=== PATIENT | female | born 1930 | race Caucasian/White ===

== ENCOUNTER 2017-09-08 13:22 | Emergency (ER) | payer MEDICARE, OTHER ==
[~2017-09-08] VITALS: Ht 165.1 cm; Wt 90.0 kg
[~2017-09-08 13:22] MED LIST: ACETAMIN500 M1 PO; ACETAMINOPHEN500 MG PO; ACID REDUCER150 MG PO; ADVIL200 MG PO; ALEVE220 M1 PO; AMOXICILLIN875 MG OR; ANTI-FUNGAL12 TOP; ASPIRIN EC81 MG PO; BENADRYL 50MG C50 MG PO; BL IBUPROFEN200 MG PO; CATAPRES0.1 MG OR; CEPHALEXIN500 MG PO; CLARITIN10 M1 PO; CORICIDN HBP OR; DEBROX6.5 % OT; DEPO-MEDROL80 MG/ML IM; DONEPEZIL5 MG PO; FISH OIL1000 MG PO; FLEXERIL5 M1 PO; HYDROCHLOROTH12.5 MG PO; HYDROXYZ HCL25 MG PO; KEFLEX500 M1 PO; KLOR-CON M2020 MEQ PO; LASIX 40 MG TAB40 MG PO; LASIX20 MG PO; LISINOPRIL10 M1 PO; LISINOPRIL20 MG PO; LOPRESSOR25 MG OR; LOVASTATIN10 M1 PO; MEDDOSEPAK PO; MOBIC7.5 MG PO; NAPROSYN500 MG PO; NITROFURANTN100 M2 PO; PAXIL20 MG OR; PREDNISONE20 MG PO; PRILOSEC20 MG OR; PRINZIDE OR; TEMAZEPAM15 MG PO; TOPROL XL OR; TRAMADOL HCL50 MG PO; TYLENOL325 MG OR; ULTRAM50 M1 PO; VITAMIN B-121000 MCG OR; XANAX0.25 MG OR
[2017-09-08] MEDS ORDERED: ACETAMIN325 MG PO (13:58)
[2017-09-08] MEDS ORDERED: KURIC2 % EX (14:00)
[2017-09-08] MEDS ORDERED: LOSARTAN POT25 MG PO (14:01)
[2017-09-08] MEDS ORDERED: MILK OF MAG30 ML/UDC PO (14:03)
[2017-09-08 18:22] VITALS: BP 169/78
== END 2017-09-08 18:22 | disposition short-term general hospital (02) ==
LOC: ED 13:22
PROC: 0HQFXZZ Repair Right Hand Skin, External Approach (ICD-10-PCS; principal; 2017-09-08)
PROC: 0HQDXZZ Repair Right Lower Arm Skin, External Approach (ICD-10-PCS; 2017-09-08)
DX: S01.81XA Laceration without foreign body of other part of head, initial encounter (principal); S61.411A Laceration without foreign body of right hand, initial encounter; S51.012A Laceration without foreign body of left elbow, initial encounter; S12.400A Unspecified displaced fracture of fifth cervical vertebra, initial encounter for closed fracture; W01.0XXA Fall on same level from slipping, tripping and stumbling without subsequent striking against object, initial encounter; Y92.002 Bathroom of unspecified non-institutional (private) residence as the place of occurrence of the external cause; F03.90 Unspecified dementia, unspecified severity, without behavioral disturbance, psychotic disturbance, mood disturbance, and anxiety; I10 Essential (primary) hypertension